=== PATIENT | male | born 1960 | race Caucasian/White ===

== ENCOUNTER 2017-11-15 10:26 | Emergency (ER) | payer OTHER ==
[2017-11-15] MEDS: SOD CHLORIDE 0.9% 1,000 ML IV (11:03)
[2017-11-15] MEDS: DIPHTH/TET/ACEL PERTUSS (ADULT) 0.5 ML VIAL IM* (11:04)
[2017-11-15] MEDS: CEFTRIAXONE 1 GM/50 ML (PMX) 50 ML IVPB (11:04)
[2017-11-15] MEDS: VANCOMYCIN 1 GM (PMX) 250 ML IVPB (11:36)
== END 2017-11-15 13:47 | disposition home or self-care (01) ==
LOC: FTE 10:26
DX: S60.861A Insect bite (nonvenomous) of right wrist, initial encounter (principal); L03.113 Cellulitis of right upper limb; I10 Essential (primary) hypertension; W57.XXXA Bitten or stung by nonvenomous insect and other nonvenomous arthropods, initial encounter; Y92.9 Unspecified place or not applicable; Z23 Encounter for immunization
CPT/HCPCS: 90471; 90715; 96374; 96375; 99284-25

== ENCOUNTER 2017-11-19 11:50 | Day surgery (SDC) | payer OTHER | END 2017-11-19 14:38 | disposition home or self-care (01) | LOC: GIL 11:50 | DX: K29.60 Other gastritis without bleeding (principal); K44.9 Diaphragmatic hernia without obstruction or gangrene; K21.0 Gastro-esophageal reflux disease with esophagitis; K25.9 Gastric ulcer, unspecified as acute or chronic, without hemorrhage or perforation | CPT/HCPCS: 43239; 88305; 88312 ==

== ENCOUNTER 2018-01-12 12:36 | Day surgery (SDC) | payer OTHER ==
[2018-01-12] MEDS ORDERED: PROPOFOL 40 ML (14:16)
== END 2018-01-12 16:55 | disposition home or self-care (01) ==
LOC: GIL 12:36
DX: Z12.11 Encounter for screening for malignant neoplasm of colon (principal); K57.90 Diverticulosis of intestine, part unspecified, without perforation or abscess without bleeding; K64.8 Other hemorrhoids; I10 Essential (primary) hypertension
CPT/HCPCS: 45378